=== PATIENT | female | born 1930 | race Caucasian/White ===

== ENCOUNTER 2017-02-22 17:32 | Emergency (ER) | payer MEDICARE, BC ==
[2017-02-22 18:11] LABS: Hematocrit 36.4 % (37.0-47.0); Hemoglobin 12.6 gm/dL (12.5-16.0); Mean Cell Volume 88.1 fl (78-100); Mean Corpuscular Hemoglobin 30.5 pg (27-31); Mean Corpuscular Hgb Conc 34.6 g/dl (32-36); Mean Platelet Volume 9.1 fl (6.0-9.5); Neutrophil # 6.1 K/mm3 (1.3-6.0); Neutrophil % 77.8 % (42-75.0); Platelet Count 517 K/mm3 (150-450); Red Blood Count 4.13 M/mm3 (4.2-5.4); Red Cell Distribution Width 13.2 % (11.5-14.0); White Blood Count 7.9 K/mm3 (4.0-10.5)
[2017-02-22 18:35] LABS: Albumin * 3.9 gm/dl (3.4-5.0); Anion Gap 17.6 mmol/L (6.8-13.8); BUN/Creatinine Ratio 8.5 (9.0-21.6); Bilirubin, Total 0.5 mg/dL (0.0-1.1); Ca. Corrected For Albumin 9.2 mg/dL (8.4-10.2); Calcium * 9.4 mg/dL (7.9-10.9); Carbon Dioxide 23.1 mmol/L (24-32.6); Potassium 3.7 mmol/L (3.4-4.6); Total Protein 8.4 gm/dL (6.2-8.2)
[2017-02-22] MEDS ORDERED: ACETAMINOPHEN 325 MG TABLET ONE (19:31)
[2017-02-22] MEDS: ACETAMINOPHEN 325 MG TABLET PO ONE (19:32)
[2017-02-22 20:05] LABS: Urine Bacteria 1+; Urine Mucus Few - 1+; Urine RBC None Seen /hpf (0-5); Urine WBC 0-5 /hpf (0-5)
--- NOTE | 2017-02-22 20:12 | ERNOTE ---
Medical Problem HPI - Narrative Date of Service: 02/22/17 - General Chief Complaint: Flu Symptoms Time Seen by Provider: 02/22/17 19:32 Source: patient, RN notes reviewed Exam Limitations: no limitations - Immun/Allergies/Home Medications Immunizations: IMMUNIZATION HX History of Influenza Vaccine No Hx Pneumococcal Vaccination Yes Allergies/Adverse Reactions: Allergies ezetimibe [From Vytorin 10-10] Adverse Reaction (Verified 02/22/17 17:52) Vomiting lisinopril Adverse Reaction (Verified 02/22/17 17:52) rosuvastatin calcium [From Crestor] Adverse Reaction (Verified 02/22/17 17:52) Pain simvastatin [From Vytorin 10-10] Adverse Reaction (Verified 02/22/17 17:52) Vomiting Sulfa (Sulfonamide Antibiotics) Adverse Reaction (Verified 02/22/17 17:52) Itching Home Medications: HOME MEDICATIONS Aspirin [Aspirin Chewable] 81 mg PO DAILY 10/21/12 [Last Taken Unknown] B Complex C 11/Calcium/Dha/Q10 [Brain Bdnws-Jrs-Ar Q10 Tablet] 1 each PO DAILY 10/21/12 [Last Taken Unknown] Metoprolol Succinate [Toprol Xl] 200 mg PO DAILY 10/21/12 [Last Taken Unknown] amLODIPine BESYLATE [Norvasc (Amlodipine)] 7.5 mg PO DAILY 10/21/12 [Last Taken Unknown] Meclizine HCl [Antivert] 25 mg PO Q6H PRN #0 tablet 10/22/12 [Last Taken Unknown ] Ascorbic Acid [Vitamin C] 1,000 mg PO DAILY 01/30/14 [Last Taken Unknown] Calcium Carb, Citrate/Vit D3 [Calcium + D3 ER Tablet] 1 each PO DAILY 01/30/14 [ Last Taken Unknown] Calcium Carbonate [Tums] 1,000 mg PO PRN PRN 01/30/14 [Last Taken Unknown] Cholecalciferol (Vitamin D3) [Vitamin D-3] 2,000 unit PO DAILY 01/30/14 [Last Taken Unknown] [place]-3 Fatty Acids/Fish Oil [Fish Oil 1,200 mg Softgel] 2 each PO BID 01/30/14 [Last Taken Unknown] Ubidecarenone [Co Q-10] 1 tab PO DAILY 01/30/14 [Last Taken Unknown] Levofloxacin [Levaquin] 500 mg PO DAILY #10 tab 02/22/17 [Last Taken Unknown] - History of Present History Narrative: 86 year old female presents to the ED from home with a cough and fever. Her symptoms initially began approximately 2 weeks ago. She saw her PCP and a chest xray was obtained at that time. This was unremarkable. She was given Zithromax for 3 days and reports that her symptoms then improved for a few days, but returned. She has continued to have the cough and generally not feel well, but began having fever and feeling a lot worse yesterday. Review of Systems - Review of Systems Constitutional: Present: recent illness, fever, chills, fatigue, malaise EYE: Absent: eye pain, eye discharge ENT: Absent: ear pain, nose congestion, nasal drainage, sore throat Respiratory: Present: cough. Absent: shortness of breath, orthopnea, wheezing Cardiology: Absent: chest pain, palpitations, edema Gastrointestinal/Abdominal: Absent: nausea, vomiting, abdominal pain Genitourinary: Absent: frequency, dysuria, hematuria, decreased urinary output Musculoskeletal: Present: muscle pain, joint pain Skin: Absent: rash, lesions Neurological: Present: headache. Absent: dizziness/light-headedness Endocrine: Present: no symptoms reported Hematologic/Lymphatic: Present: no symptoms reported Psych: Present: no symptoms reported - Patient's Past Medical History Patient History - Medical: No pertinent hx Patient History - Cardiac/Respiratory: Hypertension Patient History - Cancer: Other Patient History - Surgical Procedures: Hysterectomy, Total Knee Replacement, T & A, Other Patient History - Other: None LMP (females 10-50): Menopausal - Social History Living Situations: home - Immunizations Hx Pneumococcal Vaccination: Yes History of Influenza Vaccine: No Physical Exam - Physical Exam General Appearance: Present: wd/wn, alert, no apparent distress Head Exam: Present: normal inspection. Absent: swelling, tenderness Eye Exam: Normal inspection: bilateral Ears, Nose, Throat: Present: normal ENT inspection, normal pharynx Neck: Present: normal inspection, nontender, supple, full range of motion Respiratory: Present: no respiratory distress, no accessory muscle use, rhonchi - barely audible, left lower lung Cardiovascular/Chest: Present: no murmur, normal peripheral pulses, tachycardia Back Exam: Present: normal inspection, no CVA tenderness Extremity Exam: Present: normal inspection, normal range of motion, no edema Neurological Exam: Present: alert, oriented, normal mood/affect, no motor/ sensory deficits Skin Exam: Present: normal color, warm/dry ED Progress - Results and Orders Patient's Lab Results:: I have reviewed the patient's lab results. - Vital Signs Patient's Vital Signs:: I have reviewed the patient's vital signs. Vital Signs: Vital Signs 02/22/17 02/22/17 02/22/17 17:47 19:29 19:54 Temperature 38.0 C H 38.3 C H Pulse Rate 121 H 110 H 107 H Respiratory 19 20 19 Rate Blood Pressure 150/69 134/84 140/75 O2 Sat by Pulse 98 98 97 Oximetry - Progress/Reassessment Chief Complaint: Flu Symptoms Progress:: Unchanged Plan - Plan Plan: Urine micro shows bacteria, not enough urine for culture, but will treat this and the ongoing cough/fever with Levaquin since she did improve for a short time on Zithromax. Patient agreeable with plan. Departure Clinical Impression: UTI (urinary tract infection) Qualifiers: Urinary tract infection type: site unspecified Hematuria presence: without hematuria Qualified Code(s): N39.0 - Urinary tract infection, site not specified Pneumonia Qualifiers: Pneumonia type: due to unspecified organism Laterality: unspecified laterality Lung location: unspecified part of lung Qualified Code(s): J18.9 - Pneumonia, unspecified organism - Departure Disposition: Home Follow Up Needed Condition: Stable Instructions: Community-Acquired Pneumonia, Adult, [id number] Additional Instructions: Tylenol for fever Recheck with Dr. Hills next week, or return to ER if worse Referrals: Lee Hills MD [Primary Care Provider] - Prescriptions: Levofloxacin [Levaquin] 500 mg PO DAILY #10 tab
[2017-02-22] MEDS ORDERED: LEVOFLOXACIN 500 MG TABLET ONE (20:25)
[2017-02-22] MEDS: LEVOFLOXACIN 500 MG TABLET PO ONE (20:28)
[2017-02-22 20:34] VITALS: BP 134/74
== END 2017-02-22 20:29 | disposition home or self-care (01) ==
LOC: ER 17:32
DX: N39.0 Urinary tract infection, site not specified; J18.9 Pneumonia, unspecified organism